=== PATIENT | female | born 2000 | race Caucasian/White ===

== ENCOUNTER 2024-09-11 15:16 | Outpatient (CLI) | payer MEDICAID, SELFPAY | END 2024-09-11 15:17 | disposition home or self-care (01) | PROVIDERS: PCP Family Medicine; Visit Provider Midwife | DX: Z34.91 Encounter for supervision of normal pregnancy, unspecified, first trimester (principal); Z3A.08 8 weeks gestation of pregnancy | CPT/HCPCS: 83020; 83021; 84439; 84443; 85660; 86592; 86703; 86704; 86706; 86762; 86787; 86803; 86850; 86900; 86901; 87086; 87340 ==

== ENCOUNTER 2024-09-16 11:54 | Outpatient (CLI) | payer MEDICAID, SELFPAY ==
--- NOTE | 2024-09-16 11:45 | CRLHL7_ITS ---
For Patients: As a result of the Cures Act, medical imaging exams and procedure reports are released immediately into your electronic medical record. You may view this report before your referring provider. If you have questions, please contact your health care provider. INDICATION: Nontoxic single thyroid nodule COMPARISON: none TECHNIQUE: Haile scale and color Doppler images were acquired of the thyroid gland. FINDINGS: Hypoechoic nodule at the isthmus measures 12 x 5 x 8 millimeters, TR 4. Solid and cystic nodule left thyroid lobe measures 2.4 x 1.9 x 1.8 cm, TR 3. Isthmus measures 4.9 millimeters. The right lobe measures 5.8 x 1.7 x 2.1 cm and the left lobe measures 5.0 x 1.9 x 2.0 cm in size. The color Doppler images demonstrate normal vascularity. There is no evidence of cervical lymphadenopathy or parathyroid mass. IMPRESSION: Left thyroid and isthmus nodules. One year follow-up recommended. Dictated by Robert Narvaez MD @ 09/16/2024 1:31:14 PM (Electronically Signed)
== END 2024-09-16 11:55 | disposition home or self-care (01) ==
LOC: US 11:54
PROVIDERS: PCP Family Medicine; Visit Provider Midwife
DX: E04.1 Nontoxic single thyroid nodule (principal)
CPT/HCPCS: 76536

== ENCOUNTER 2024-09-23 14:08 | Outpatient (CLI) | payer MEDICAID, SELFPAY | END 2024-09-23 14:09 | disposition home or self-care (01) | LOC: NFLDREF 09-27 06:48 | PROVIDERS: PCP Family Medicine; Referring Provider Family Medicine; Visit Provider Midwife | DX: Z34.01 Encounter for supervision of normal first pregnancy, first trimester (principal); E04.1 Nontoxic single thyroid nodule | CPT/HCPCS: 84439; 84481; 86376; 86800; 87491; 87591 ==

== ENCOUNTER 2024-10-09 13:47 | Outpatient (CLI) | payer MEDICAID, SELFPAY | END 2024-10-09 13:48 | disposition home or self-care (01) | LOC: NFLDREF 13:48 | PROVIDERS: PCP Family Medicine; Visit Provider Midwife | DX: Z34.01 Encounter for supervision of normal first pregnancy, first trimester (principal) | CPT/HCPCS: 87491; 87591 ==

== ENCOUNTER 2024-11-06 14:37 | Outpatient (CLI) | payer BC, SELFPAY ==
[2024-11-06 18:45] LABS: Chlamydia DNA Amplified* NOT DETECTED (No Detected); GC DNA Amplified* NOT DETECTED (No Detected)
== END 2024-11-06 14:38 | disposition home or self-care (01) ==
LOC: NFLDREF 14:37
PROVIDERS: PCP Family Medicine; Visit Provider Advanced Practice Midwife
DX: Z34.02 Encounter for supervision of normal first pregnancy, second trimester (principal); E03.9 Hypothyroidism, unspecified
CPT/HCPCS: 84443; 87491; 87591

== ENCOUNTER 2024-12-04 11:11 | Outpatient (CLI) | payer BC, SELFPAY ==
--- NOTE | 2024-12-04 11:15 | CRLHL7_ITS ---
For Patients: As a result of the Century Cures Act, medical imaging exams and procedure reports are released immediately into your electronic medical record. You may view this report before your referring provider. If you have questions, please contact your health care provider. OBSTETRICAL ULTRASOUND ??? ANATOMY SURVEY, 12/04/2024 INDICATION: anatomy survey. CLINICAL HISTORY: LMP: 07/15/2024 MIGUEL by LMP: 04/21/2025 Gestational age: 20 weeks 2 days TECHNIQUE: Real-time henry-scale transabdominal imaging of the fetus was performed. PRIOR ULTRASOUND: 09/08/2024 FINDINGS: position: Vertex Cervix: Visualized Technique: Transabdominal Length of closed cervix: 3.3 cm Placenta position: Anterior Placenta tip to internal os: 8.8 cm Umbilical cord: 3-vessel cord Placental insertion: Central Amniotic fluid: 4.6 cm SDP (greater than/equal to 2 to less than 8 cm) ANATOMY SURVEY: Observed Structures Cerebellum: Yes; 2.3 cm, 22 weeks 3 days Cisterna magna: Yes; 5.5 mm Nuchal fold: Yes; 5.8 mm Lateral ventricle: Yes; 7.1 mm CSP: Yes Midline falx: Yes Choroid plexus: Yes Spine: Yes Stomach: Yes Abdominal cord insert: Yes Urinary bladder: Yes Kidneys: Yes Diaphragm: Yes Nose/lips: Yes Orbital view: Yes Profile: Yes Upper extremities: Yes Lower extremities: Yes Hands: Yes Feet: Yes 4-chamber heart: Yes LVOT: Yes RVOT: Yes 3VV: Yes 3VTV: Yes BIOMETRY BPD: 5.1 cm, 21 weeks 3 days, 88.0% HC: 18.5 cm, 20 weeks 6 days, 69.2% AC: 15.9 cm, 21 weeks 0 days, 67.8% FL: 3.3 cm, 20 weeks 3 days, 47.0% FL/AC: 20.9% HC/AC ratio: 1.2 heart rate: 163 bpm age by this ultrasound: 21 weeks 1 day MIGUEL by this ultrasound: 04/15/2025 Estimated weight: 376.5 grams (0 pounds 13 ounces) Percentile by MIGUEL: 73.0% IMPRESSION: 1) Sonographic gestational age is 21 weeks 1 day and sonographic due date is 04/15/2025. Sonographic age is 6 days ahead of the clinical age. 2) Estimated weight is 73rd percentile. Abdominal circumference is 68th percentile. am. 3) Normal anatomic survey. ROBERT JAMISON M.D. Diagnostic Radiologist [email or web address] Transcribed: 2:[address]/Dictated by: Robert Jamison MD @ 12/04/2024 12:44:00 PM (Electronically Signed)
== END 2024-12-04 11:12 | disposition home or self-care (01) ==
LOC: US 11:11
PROVIDERS: PCP Family Medicine; Visit Provider Advanced Practice Midwife
DX: O36.62X0 Maternal care for excessive fetal growth, second trimester, not applicable or unspecified (principal); Z3A.21 21 weeks gestation of pregnancy
CPT/HCPCS: 76805; 84443

== ENCOUNTER 2025-01-01 12:54 | Outpatient (CLI) | payer BC, SELFPAY | END 2025-01-01 12:55 | disposition home or self-care (01) | LOC: NFLDREF 12:55 | PROVIDERS: PCP Family Medicine; Visit Provider Midwife | DX: E03.9 Hypothyroidism, unspecified (principal) | CPT/HCPCS: 84443 ==

== ENCOUNTER 2025-01-29 13:44 | Outpatient (CLI) | payer BC, SELFPAY | END 2025-01-29 13:45 | disposition home or self-care (01) | LOC: NFLDREF 13:44 | PROVIDERS: PCP Family Medicine; Visit Provider Advanced Practice Midwife | DX: Z34.92 Encounter for supervision of normal pregnancy, unspecified, second trimester (principal) | CPT/HCPCS: 84443; 86592 ==

== ENCOUNTER 2025-02-26 11:44 | Outpatient (CLI) | payer BC, SELFPAY | END 2025-02-26 11:45 | disposition home or self-care (01) | LOC: NFLDREF 11:45 | PROVIDERS: PCP Family Medicine; Visit Provider Obstetrics & Gynecology | DX: O99.013 Anemia complicating pregnancy, third trimester (principal) | CPT/HCPCS: 82728; 84443 ==

== ENCOUNTER 2025-03-12 12:37 | Outpatient (CLI) | payer BC, SELFPAY | END 2025-03-12 12:38 | disposition home or self-care (01) | LOC: NFLDREF 03-15 12:50 | PROVIDERS: PCP Family Medicine; Referring Provider Family Medicine; Visit Provider Obstetrics & Gynecology | DX: Z34.93 Encounter for supervision of normal pregnancy, unspecified, third trimester (principal) | CPT/HCPCS: 82728 ==